=== PATIENT | female | born 1970 | race Caucasian/White ===

== ENCOUNTER 2021-09-17 06:12 | Day surgery (SDC) | payer BC ==
[2021-09-17] MEDS: Lactated Ringers 1,000 ML IV SCH (06:40)
[2021-09-17] MEDS ORDERED: fentaNYL 100 MCG/2 ML SDV ONE (07:47)
[2021-09-17] MEDS ORDERED: Propofol 200 MG/20 ML SDV ONE ×2 (07:47→08:01)
[2021-09-17] MEDS ORDERED: Potassium Chloride Riders 0 ML ONE (08:00)
[2021-09-17 08:35] VITALS: BP 121/81; PULSE 70
== END 2021-09-17 09:20 | disposition home or self-care (01) ==
LOC: VM.SDS 06:12
PROVIDERS: ATTEND Student in an Organized Health Care Education/Training Program
DX: Z12.11 Encounter for screening for malignant neoplasm of colon (principal); D12.2 Benign neoplasm of ascending colon; I83.90 Asymptomatic varicose veins of unspecified lower extremity; L81.9 Disorder of pigmentation, unspecified; N95.1 Menopausal and female climacteric states; E66.9 Obesity, unspecified; Z90.49 Acquired absence of other specified parts of digestive tract; Z88.0 Allergy status to penicillin; Z87.891 Personal history of nicotine dependence; Z68.34 Body mass index [BMI] 34.0-34.9, adult
CPT/HCPCS: 00812; 45380; J2704; J3010; J7120; J3480